=== PATIENT | female | born 1985 | race African-American/Black ===

== ENCOUNTER 2016-11-11 15:15 | Emergency (ER) | payer OTHER ==
[~2016-11-11] VITALS: Ht 170.2 cm; Wt 86.2 kg
[~2016-11-11 15:15] MED LIST: BENADRYL25 MG PO; KENALOG60 GM TP
[2016-11-11 15:17] VITALS: BP 149/79
[2016-11-11] MEDS ORDERED: TORADOL 10 MG T10 MG PO (15:26)
[2016-11-11] MEDS ORDERED: CYCLOBENZAPRINE5 MG PO (15:26)
== END 2016-11-11 16:21 | disposition home or self-care (01) ==
LOC: ER 15:15
DX: S39.012A Strain of muscle, fascia and tendon of lower back, initial encounter (principal); S16.1XXA Strain of muscle, fascia and tendon at neck level, initial encounter; V89.2XXA Person injured in unspecified motor-vehicle accident, traffic, initial encounter; Y93.89 Activity, other specified; Y92.89 Other specified places as the place of occurrence of the external cause; Y99.8 Other external cause status